=== PATIENT | male | born 1985 | race Hispanic/Latino ===

== ENCOUNTER 2018-11-10 21:14 | Emergency (ER) | payer OTHER ==
[~2018-11-10] VITALS: Ht 182.9 cm; Wt 85.5 kg
[2018-11-10] MEDS ORDERED: TETRACAINE 0.5% OPHTH SOLN 4ML OD ONE (23:45)
[2018-11-10] MEDS ORDERED: FLUORESCEIN OPHTH 1 MG STRIP OD ONE (23:45)
[2018-11-11] MEDS ORDERED: DERMABOND TOPICAL SKIN ADHESIVE TOP ONE (00:15)
[2018-11-11 00:43] VITALS: BP 118/66
== END 2018-11-11 00:51 | disposition home or self-care (01) ==
LOC: M ED 21:14
DX: S01.111A Laceration without foreign body of right eyelid and periocular area, initial encounter (principal); W27.0XXA Contact with workbench tool, initial encounter; Y92.9 Unspecified place or not applicable; Y93.9 Activity, unspecified